=== PATIENT | female | born 1985 | race Hispanic/Latino ===

== ENCOUNTER 2016-08-10 19:59 | Emergency (ER) | payer OTHER ==
[~2016-08-10] VITALS: Ht 157.5 cm; Wt 74.5 kg
[~2016-08-10 19:59] MED LIST: MELOXICAM15 MG PO; NAPROSYN500 MG PO; SPRINTEC1 EACH PO
[2016-08-10 21:23] LABS: MCH 23.6 PG (29.0-34.0); MCHC 31.8 G/DL (30.0-36.0); MCV 74.4 FL (83-99); MEAN PLAT.VOLUME 10.3 uM^3 (9.5-12.4); PLATELET COUNT 339 K/uL (156-360); RBC DIS.WIDTH-CV 17.6 % (11.8-14.6); RBC DIS.WIDTH-SD 46.1 % (39-53); RED BLOOD COUNT 4.57 M/uL (3.80-5.20); WHITE BLOOD COUNT 10.4 K/uL (4.1-10.2)
[2016-08-10 21:32] LABS: CHLORIDE 109 mEq/L (99-109); POTASSIUM 4.4 mEq/L (3.7-5.4); SODIUM 142 mEq/L (136-147)
[2016-08-10 21:34] LABS: GLUCOSE 89 mg/dL (70-99)
[2016-08-10 21:36] LABS: ANION GAP 8 MEQ/L (2-14); TOTAL BILIRUBIN 0.2 mg/dL (0.0-1.0)
[2016-08-10 21:38] LABS: ALKALINE PHOSPHATASE 82 IU/L (3-129); GFR ESTIMATE (CALCULATED) > 59 mL/min/
[2016-08-10 21:39] LABS: UREA NITROGEN (BUN) 9 mg/dL (9-23)
[2016-08-10 21:47] LABS: QUANTITATIVE HCG < 4.0 MIU/ML
[2016-08-10 23:00] VITALS: BP 99/52
== END 2016-08-10 23:01 | disposition home or self-care (01) ==
LOC: EME → EDBD 19:59 → EME 19:59
PROVIDERS: Physician Assistant
DX: G43.909 Migraine, unspecified, not intractable, without status migrainosus (principal); R55 Syncope and collapse
CPT/HCPCS: 80053; 84702; 85027; 93005; 99281; 99285; J1885; J2765

== ENCOUNTER 2016-11-03 15:09 | Emergency (ER) | payer OTHER ==
[~2016-11-03] VITALS: Ht 154.9 cm; Wt 75.8 kg
[2016-11-03 16:40] LABS: EOSINOPHIL (%) 0.3 % (0-5); HEMATOCRIT 40.5 % (36.0-46.0); IMMATURE GRANULOCYTE (%) 0.1 % (0.0-0.7); LYMPHOCYTE COUNT 2.6 K/uL (1.0-2.8); MCH 23.7 PG (29.0-34.0); MCHC 30.9 G/DL (30.0-36.0); MCV 76.9 FL (83-99); MEAN PLAT.VOLUME 10.9 uM^3 (9.5-12.4); MONOCYTE COUNT 0.4 K/uL (0-0.8); NEUTROPHIL (%) 56.5 % (45-76); PLATELET COUNT 324 K/uL (156-360); RBC DIS.WIDTH-CV 17.3 % (11.8-14.6); RBC DIS.WIDTH-SD 47.7 % (39-53); RED BLOOD COUNT 5.27 M/uL (3.80-5.20); WHITE BLOOD COUNT 7.2 K/uL (4.1-10.2)
[2016-11-03 16:53] LABS: CHLORIDE 106 mEq/L (99-109); POTASSIUM 3.8 mEq/L (3.7-5.4); SODIUM 140 mEq/L (136-147)
[2016-11-03 16:55] LABS: GLUCOSE 95 mg/dL (70-99)
[2016-11-03 16:57] LABS: ANION GAP 7 MEQ/L (2-14)
[2016-11-03 16:59] LABS: GFR ESTIMATE (CALCULATED) > 59 mL/min/
[2016-11-03 17:00] LABS: UREA NITROGEN (BUN) 5 mg/dL (9-23)
[2016-11-03 19:03] LABS: QUANTITATIVE HCG < 4.0 MIU/ML
[2016-11-03 19:21] VITALS: BP 125/82
== END 2016-11-03 19:22 | disposition home or self-care (01) ==
LOC: EME 15:09
PROVIDERS: Emergency Medicine
DX: G43.909 Migraine, unspecified, not intractable, without status migrainosus (principal); S00.83XA Contusion of other part of head, initial encounter; W18.30XA Fall on same level, unspecified, initial encounter; E28.2 Polycystic ovarian syndrome; Z79.84 Long term (current) use of oral hypoglycemic drugs; Z79.899 Other long term (current) drug therapy
CPT/HCPCS: 70450; 70486; 80048; 84702; 85025; 99281; 99284; J1885; J2765; J7030